=== PATIENT | male | born 1955 | race Caucasian/White ===

== ENCOUNTER 2021-08-01 12:17 | Outpatient (CLI) | payer MEDICARE | END 2021-08-01 12:18 | disposition home or self-care (01) | LOC: SCSMRI 12:17 | PROVIDERS: ATTEND Family Medicine | DX: M54.50 Low back pain, unspecified (principal); M47.816 Spondylosis without myelopathy or radiculopathy, lumbar region; M48.061 Spinal stenosis, lumbar region without neurogenic claudication; M25.78 Osteophyte, vertebrae; N28.9 Disorder of kidney and ureter, unspecified | CPT/HCPCS: 70210; 72148 ==